=== PATIENT | female | born 1960 | race African-American/Black ===

== ENCOUNTER 2024-03-12 17:26 | Emergency (ER) | payer MEDICAID, OTHER ==
[~2024-03-12] VITALS: Ht 167.6 cm; Wt 71.8 kg
[~2024-03-12 17:26] MED LIST: IBUP-45 PO
[2024-03-12 17:33] VITALS: TEMP 98.3
[2024-03-12 18:04] LABS: BASOPHILS % (AUTO) 0.6 % (0.0-2.0); EOSINOPHILS % (AUTO) 3.4 % (1.0-6.0); HEMATOCRIT 42.3 % (36-46); LYMPHOCYTES # (AUTO) 1.8 K/uL (1.0-4.8); LYMPHOCYTES % (AUTO) 26.2 % (22.0-44.0); MEAN CORPUSCULAR HEMOGLOBIN 31.1 pg (26.0-34.0); MEAN CORPUSCULAR VOLUME 94 fL (80-100); MONOCYTES # (AUTO) 0.7 K/uL (0.1-1.0); MONOCYTES % (AUTO) 10.3 % (2.0-9.0); NEUTROPHILS # (AUTO) 4.2 K/uL (1.8-7.7); NEUTROPHILS % (AUTO) 59.5 % (40.0-70.0); PLATELET COUNT (AUTO) 180 K/uL (150-450); RED BLOOD CELL COUNT(AUTO) 4.49 MIL/uL (4.00-5.20); RED CELL DISTRIBUTION WIDTH 13.2 % (11.5-14.5)
[2024-03-12 18:14] LABS: ANION GAP 3 mmol/L (8-16); CALCIUM, TOTAL 9.2 mg/dL (8.8-10.5); CARBON DIOXIDE 34 mmol/L (22-29); CHLORIDE 105 mmol/L (98-107); CREATININE 0.76 mg/dL (0.60-1.30); GLOMERULAR FILTR. RATE CALC > 60 mL/min (>60); GLUCOSE,RANDOM 106 mg/dL (70-110); POTASSIUM 3.8 mmol/L (3.5-5.1); SODIUM SERUM 141 mmol/L (136-145); UREA NITROGEN, BLOOD 6 mg/dL (7-18)
[2024-03-12 18:20] LABS: ALANINE AMINOTRANSFERASE 15 U/L (12-78); ALBUMIN 3.3 g/dL (3.4-5.0); ALKALINE PHOSPHATASE 79 U/L (46-116); ASPARTATE AMINOTRANSFERASE 14 U/L (15-37); BILIRUBIN,TOTAL 0.6 mg/dL (0.1-1.0); TOTAL PROTEIN, SERUM 7.1 g/dL (6.4-8.2)
[2024-03-12 18:22] LABS: TROPONIN I-HIGH SENSITIVITY 6 ng/L (<51)
[2024-03-12] MEDS: PredniSONE 20 MG TABLET PO ONE (20:18)
[2024-03-12 20:38] VITALS: PULSE 88; RESP 22; O2SAT 86; O2SAT 96
[2024-03-12] MEDS: IPRATROPIUM BROMIDE 0.5 MG/2.5 ML NEB SOLUTION NEB ONE (20:38)
[2024-03-12] MEDS: ALBUTEROL SULFATE 2.5 MG/0.5 ML NEB SOLUTION NEB ONE (20:38)
[2024-03-12 20:53] VITALS: PULSE 86; RESP 20; O2SAT 97
[2024-03-12 21:07] LABS: TROPONIN I-HIGH SENSITIVITY 9 ng/L (<51)
[2024-03-12 21:08] LABS: B-TYPE NATRIURETIC PEPTIDE < 5 pg/mL (0-100)
[2024-03-12 21:24] LABS: CREATINE KINASE, TOTAL ONLY 126 U/L (26-192)
[2024-03-12 22:00] VITALS: BP 104/69; PULSE 82; RESP 18
[2024-03-12] MEDS ORDERED: MONTELUKAST SODIUM 10 MG TABLET PO SCH (22:15)
[2024-03-12] MEDS ORDERED: MAGNESIUM HYDROXIDE SUSPENSION 30 ML UDCUP PO PRN (22:15)
[2024-03-12] MEDS ORDERED: ALBUTEROL SULFATE 2.5 MG/0.5 ML NEB SOLUTION NEB PRN (22:15)
[2024-03-12] MEDS ORDERED: ACETAMINOPHEN 325 MG TABLET PO PRN (22:15)
[2024-03-12] MEDS ORDERED: PRED-554 PO (22:24)
[2024-03-12] MEDS ORDERED: ALBU18HF12 IH (22:24)
[2024-03-12] MEDS ORDERED: AZIT250T9 PO (22:24)
[2024-03-12] MEDS ORDERED: ALBUTEROL SULFATE 2.5 MG/0.5 ML NEB SOLUTION NEB ONE (22:30)
[2024-03-12] MEDS ORDERED: BENZONATATE 100 MG CAPSULE PO PRN (22:30)
[2024-03-13] MEDS ORDERED: HEPARIN SODIUM,PORCINE 5,000 UNITS/ML VIAL SQ SCH
[2024-03-13] MEDS ORDERED: FAMOTIDINE 20 MG TABLET PO SCH (09:00)
[2024-03-14] MEDS ORDERED: MethylPREDNISolone SOD SUCC 125 MG/2 ML VIAL IVP SCH (05:00)
== END 2024-03-12 22:40 | disposition left against medical advice (07) ==
LOC: EMS 17:26
DX: J44.1 Chronic obstructive pulmonary disease with (acute) exacerbation (principal); R06.02 Shortness of breath; R05.9 Cough, unspecified; R09.81 Nasal congestion; F17.210 Nicotine dependence, cigarettes, uncomplicated; Z88.0 Allergy status to penicillin; Z88.6 Allergy status to analgesic agent
CPT/HCPCS: 99285; 71045; 80053; 82550; 83880; 84484; 85025; 85379; 87040; 36415; 94640; 93005; J7512; J7613

== ENCOUNTER 2024-11-11 06:27 | Inpatient (IN) | payer MEDICARE, OTHER ==
[~2024-11-11] VITALS: Ht 167.6 cm; Wt 84.0 kg
[~2024-11-11 06:27] MED LIST changes: +ALBU18HF12 IH; -IBUP-45 PO; +PRED-554 PO
[2024-11-11 09:41] LABS: ANION GAP 3 mmol/L (8-16); BASOPHILS % (AUTO) 1.3 % (0.0-2.0); CALCIUM, TOTAL 8.6 mg/dL (8.8-10.5); CARBON DIOXIDE 34 mmol/L (22-29); CHLORIDE 106 mmol/L (98-107); CREATININE 0.62 mg/dL (0.60-1.30); EOSINOPHILS % (AUTO) 4.6 % (1.0-6.0); GLOMERULAR FILTR. RATE CALC > 60 mL/min (>60); GLUCOSE,RANDOM 91 mg/dL (70-110); HEMATOCRIT 42.8 % (36-46); LYMPHOCYTES # (AUTO) 1.7 K/uL (1.0-4.8); LYMPHOCYTES % (AUTO) 32.7 % (22.0-44.0); MEAN CORPUSCULAR HEMOGLOBIN 30.7 pg (26.0-34.0); MEAN CORPUSCULAR HGB CONC 32.7 G/dL (31.0-37.0); MEAN CORPUSCULAR VOLUME 94 fL (80-100); MONOCYTES # (AUTO) 0.4 K/uL (0.1-1.0); MONOCYTES % (AUTO) 8.5 % (2.0-9.0); NEUTROPHILS # (AUTO) 2.7 K/uL (1.8-7.7); NEUTROPHILS % (AUTO) 52.9 % (40.0-70.0); PLATELET COUNT (AUTO) 165 K/uL (150-450); POTASSIUM 4.5 mmol/L (3.5-5.1); RED BLOOD CELL COUNT(AUTO) 4.55 MIL/uL (4.00-5.20); RED CELL DISTRIBUTION WIDTH 13.4 % (11.5-14.5); SODIUM SERUM 143 mmol/L (136-145); UREA NITROGEN, BLOOD 12 mg/dL (7-18); WHITE BLOOD COUNT (AUTO) 5.1 K/uL (4.5-11.0)
[2024-11-11 09:50] LABS: TROPONIN I-HIGH SENSITIVITY 29 ng/L (<51)
[2024-11-11 09:51] VITALS: PULSE 91; RESP 16; O2SAT 97
[2024-11-11] MEDS: IPRATROPIUM BROMIDE 0.5 MG/2.5 ML NEB SOLUTION NEB ONE ×2 (09:51→11:53)
[2024-11-11] MEDS: ALBUTEROL SULFATE 2.5 MG/0.5 ML NEB SOLUTION NEB ONE (09:51)
[2024-11-11 09:53] VITALS: PULSE 87; RESP 16; O2SAT 99
[2024-11-11 10:02] LABS: B-TYPE NATRIURETIC PEPTIDE 8 pg/mL (0-100)
[2024-11-11] MEDS: OXYGEN THERAPY IH SCH (10:30)
[2024-11-11] MEDS: AZITHROMYCIN 500 MG/NS 250 ML IV ONE (10:53)
[2024-11-11] MEDS: MethylPREDNISolone SOD SUCC 125 MG/2 ML VIAL IVP ONE (10:53)
[2024-11-11 11:00] LABS: COVID AG,FIA SOURCE NASAL SWAB
[2024-11-11] MEDS: ONDANSETRON HCL 4 MG/2 ML VIAL IVP ONE (11:12)
[2024-11-11] MEDS: MECLIZINE HCL 25 MG TABLET PO ONE (11:31)
[2024-11-11 11:45] LABS: INFLUENZA TYPE A NEGATIVE FOR TYPE A (NEGATIVE); INFLUENZA TYPE B NEGATIVE FOR TYPE B (NEGATIVE); SARS-COV2 (COVID) ANTIGEN,FIA Negative (Negative)
[2024-11-11] MEDS: ALBUTEROL SULFATE 2.5 MG/0.5 ML 5 ML NEB SOLUTION NEB ONE (11:53)
[2024-11-11 11:54] VITALS: PULSE 98; RESP 16; O2SAT 99
[2024-11-11] MEDS ORDERED: MAGNESIUM HYDROXIDE SUSPENSION 30 ML UDCUP PO PRN (12:15)
[2024-11-11] MEDS ORDERED: ALBUTEROL SULFATE 2.5 MG/0.5 ML NEB SOLUTION NEB PRN (12:15)
[2024-11-11] MEDS ORDERED: ZOLPIDEM TARTRATE 5 MG TABLET PO PRN (12:15)
[2024-11-11] MEDS ORDERED: ACETAMINOPHEN 325 MG TABLET PO PRN (12:15)
[2024-11-11] MEDS ORDERED: ATOR20TA65 PO (12:29)
[2024-11-11] MEDS ORDERED: DUPI300P SQ (12:29)
[2024-11-11] MEDS ORDERED: FLUT16H NASAL (12:29)
[2024-11-11] MEDS ORDERED: IBUP-2077 PO (12:29)
[2024-11-11] MEDS ORDERED: HYDR30CR3 TP (12:29)
[2024-11-11] MEDS ORDERED: TIOT4MIS3 IH (12:29)
[2024-11-11] MEDS ORDERED: ACET-66 PO (12:29)
[2024-11-11] MEDS ORDERED: CLOB15OI21 TP (12:29)
[2024-11-11] MEDS: MONTELUKAST SODIUM 10 MG TABLET PO SCH (13:28)
[2024-11-11 15:44] VITALS: BP 110/61; PULSE 107; RESP 20; TEMP 98.3; O2SAT 98
[2024-11-11] MEDS: MethylPREDNISolone SOD SUCC 125 MG/2 ML VIAL IVP SCH (18:02)
[2024-11-11 19:49] VITALS: BP 122/61; PULSE 113; RESP 18; TEMP 97.8; O2SAT 97
[2024-11-12 05:31] VITALS: BP 123/66; PULSE 84; RESP 0; TEMP 97.9; O2SAT 98
[2024-11-12 07:51] VITALS: BP 137/75; PULSE 82; RESP 20; TEMP 98.5; O2SAT 98
[2024-11-12] MEDS: FAMOTIDINE 20 MG TABLET PO SCH (09:54)
[2024-11-12] MEDS: AZITHROMYCIN 500 MG/NS 250 ML IV SCH (09:55)
[2024-11-12] MEDS ORDERED: SODIUM CHLORIDE 0.9% 1,000 ML ONE (09:59)
[2024-11-12 10:11] LABS: ABG METHEMOGLOBIN 0.1 % (0.0-1.5); ABG TOTAL HEMOGLOBIN 13.1 G/dL (12.0-16.0); SOURCE, BLOOD GAS ARTERIAL; TEMPERATURE, FAHRENHEIT, BG 98.6 FAHREN (96.0-98.6)
[2024-11-12 10:29] LABS: ABG A-A DIFF O2 33.9 mmHg (10-20.0); ABG BASE EXCESS -0.2 mmol/L (-2.0-3.0); ABG CARBOXYHEMOGLOBIN 0.3 % (0.5-1.5); ABG HCO3 23.9 mmol/L (21.0-28.0); ABG OXYGEN CONTENT 16.7 mL/dL (15.0-23.0); ABG OXYHEMOGLOBIN 90.6 % (94.0-98.0); ABG PCO2 47 mmHg (32.0-45.0); ABG PH 7.349 (7.350-7.450); ALLEN TEST, BLOOD GAS Positive; O2 DEVICE,BLOOD GAS ROOM AIR (ROOM AIR); PO2, ARTERIAL BG 59.2 mmHg (83.0-108.0); SITE, BLOOD GAS RT RADIAL
[2024-11-12 17:14] VITALS: BP 126/70; PULSE 99; RESP 19; TEMP 98.2; O2SAT 98
[2024-11-12 20:30] VITALS: BP 138/72; PULSE 79; RESP 20; TEMP 97.8; O2SAT 95
[2024-11-13 04:47] VITALS: BP 126/63; PULSE 63; RESP 18; TEMP 97.9; O2SAT 97
[2024-11-13 08:32] VITALS: BP 143/74; PULSE 87; RESP 20; TEMP 98; O2SAT 99
[2024-11-13 16:00] VITALS: BP 138/78; PULSE 72; RESP 20; TEMP 98.4; O2SAT 98
== END 2024-11-13 18:23 | disposition left against medical advice (07) | DRG 189 ==
LOC: EMS 06:29 → EDH 12:41 → UNDOADMIN 12:41 → 4E 15:31
PROVIDERS: ADMIT Internal Medicine; ATTEND Internal Medicine
DX: J96.01 Acute respiratory failure with hypoxia (principal); J44.1 Chronic obstructive pulmonary disease with (acute) exacerbation; J44.0 Chronic obstructive pulmonary disease with (acute) lower respiratory infection; Z20.822 Contact with and (suspected) exposure to COVID-19; F17.200 Nicotine dependence, unspecified, uncomplicated; Z88.0 Allergy status to penicillin; Z88.6 Allergy status to analgesic agent; Z53.29 Procedure and treatment not carried out because of patient's decision for other reasons
CPT/HCPCS: 36600; 71045; 80048; 82805; 83880; 84484; 85025; 87040; 87804; 93005; 94640; 94644; 96365; 96375; 99285; G0378; J0456; J2405; J2919; J7030; 36415-L1; 36415-TC; J7613